=== PATIENT | female | born 1960 | race Caucasian/White ===

== ENCOUNTER → 2018-04-17 | Outpatient (CLI) | payer BC ==
[~2018-04-17] MED LIST: AMOX500 PO; CEPH500 PO; CIPR500 PO; CODACE30 PO; CODGUAEL PO; GUAPHELA PO; HYDACE5 PO; HYDGUAL120 PO; LANS1COM10 PO; MAGCIT300 PO; MECL25 PO; NITR100CA PO; OMEP40CA12 PO; ONDA4 PO; OXYACE5T PO; PHENA200 PO; PROM25 PO; RANI150 PO; RXHYDACE PO; TOBR.3OPSO OP
== END | disposition home or self-care (01) ==
LOC: LAB EV 16:18 → LAB SHORT 16:18
DX: N39.0 Urinary tract infection, site not specified (principal)
CPT/HCPCS: 87077; 87086; 87186

== ENCOUNTER 2019-01-21 11:11 | Observation (INO) | payer BC ==
[~2019-01-21] VITALS: Ht 154.9 cm; Wt 82.6 kg
[2019-01-21 11:44] LABS: BASOPHILS ABSOLUTE AUTO 0.04 K/mm3 (0.00-0.23); BASOPHILS PERCENT AUTO 0 % (0-2); EOSINOPHILS ABSOLUTE AUTO 0.26 K/mm3 (0.00-0.68); EOSINOPHILS PERCENT AUTO 2 % (0-6); Hematocrit 40.2 % (33.0-51.0); IMMATURE GRAN PERCENT AUTO 1 % (0-1); LYMPHOCYTES ABSOLUTE AUTO 3.41 K/mm3 (0.84-5.20); LYMPHOCYTES PERCENT AUTO 23 % (21-46); MONOCYTES ABSOLUTE AUTO 0.56 K/mm3 (0.16-1.47); MONOCYTES PERCENT AUTO 4 % (4-13); Mean Corpuscular HGB 28.6 pg (26.0-34.0); Mean Corpuscular HGB Conc 32.3 g/dL (31.5-36.5); Mean Corpuscular Volume 88 fL (80-100); NEUTROPHILS ABSOLUTE AUTO 10.62 K/mm3 (1.96-9.15); NEUTROPHILS PERCENT AUTO 71 % (41-73); Platelet Count 387 K/mm3 (150-400); RDW Coefficient Variation 12.7 % (11.7-14.2); RDW Standard Deviation 41.4 fL (35.1-46.3); Red Blood Cell Count 4.55 M/mm3 (3.80-5.20); White Blood Cell Count 14.99 K/mm3 (4.00-11.30)
[2019-01-21 11:58] LABS: Alanine Aminotransfer (ALT/SGP 26 U/L (12-78); Albumin, Blood 4.1 g/dL (3.4-5.0); Alk Phos 125 U/L (50-136); Anion Gap 13 mmol/L (6-16); Aspartate Aminotrans (AST/SGOT 12 U/L (12-37); Bilirubin, Total 0.4 mg/dL (0.1-1.0); Blood Urea Nitrogen 15 mg/dL (8-24); Bun/Creatinine Ratio 24.2 (12.0-20.0); CO2, Blood 20 mmol/L (21-32); Calcium, Blood 9.1 mg/dL (8.5-10.1); Chloride, Blood 107 mmol/L (98-108); Creatinine, Blood 0.62 mg/dL (0.40-1.00); Glomerular Filtration Rate >60 (60-); Glucose, Blood 172 mg/dL (70-99); Potassium, Blood 3.6 mmol/L (3.5-5.5); Sodium, Blood 140 mmol/L (136-145); Total Protein, Blood 8.1 g/dL (6.4-8.2)
[2019-01-21 12:36] LABS: Troponin I <0.015 ng/mL (0.000-0.040)
[2019-01-21] MEDS ORDERED: MOTION RELIEF25 MG PO (13:51)
[2019-01-21] MEDS ORDERED: Zofran4 MG PO (13:51)
[2019-01-21 14:02] LABS: Source, Urine Clean Catch
[2019-01-21 14:09] LABS: Bilirubin, Urine Neg (Neg); Blood, Urine Neg (Neg); Glucose Qualitative, Urine Neg (Neg); Ketones, Urine 3+ (Neg); Leukocyte Esterase, Urine Neg (Neg); Nitrite, Urine Pos (Neg); Protein, Urine Neg (Neg); Specific Gravity, Urine 1.015 (1.003-1.022); Urobilinogen, Urine NORM (Normal)
[2019-01-21 14:39] LABS: Appearance, Urine Clear (Clear); Color, Urine Yellow (P-Yellow)
[2019-01-21 17:27] LABS: Red Blood Cells, Urine Not Seen /hpf (0-2); Squamous Epithelial Cells Mod /hpf (Few)
[2019-01-21 17:30] LABS: Bacteria Many /hpf
--- NOTE | 2019-01-22 04:19 | NUR ---
SHIFT SUMMARY- PT. SLEPT T/O THE SHIFT. NO APPARENT DISTRESS NOTED. NO C/O NAUSEA OR VOMIITNG. NO ACUTE CHANGES OVERNIGHT. CALL LIGHT WITHIN REACH AND SIDE RAILS UP X2. WILL CONT TO MONITOR.
[2019-01-22 05:02] LABS: BASOPHILS ABSOLUTE AUTO 0.04 K/mm3 (0.00-0.23); BASOPHILS PERCENT AUTO 0 % (0-2); EOSINOPHILS ABSOLUTE AUTO 0.29 K/mm3 (0.00-0.68); EOSINOPHILS PERCENT AUTO 2 % (0-6); Hematocrit 36.6 % (33.0-51.0); Hemoglobin 11.5 g/dL (11.5-16.0); IMMATURE GRAN ABSOLUTE AUTO 0.05 K/mm3 (0.00-0.10); IMMATURE GRAN PERCENT AUTO 0 % (0-1); LYMPHOCYTES ABSOLUTE AUTO 3.55 K/mm3 (0.84-5.20); LYMPHOCYTES PERCENT AUTO 29 % (21-46); MONOCYTES ABSOLUTE AUTO 0.53 K/mm3 (0.16-1.47); MONOCYTES PERCENT AUTO 4 % (4-13); Mean Corpuscular HGB Conc 31.4 g/dL (31.5-36.5); Mean Corpuscular Volume 89 fL (80-100); Mean Platelet Volume 10.1 fL (9.1-12.4); NEUTROPHILS ABSOLUTE AUTO 7.62 K/mm3 (1.96-9.15); NEUTROPHILS PERCENT AUTO 63 % (41-73); Platelet Count 317 K/mm3 (150-400); RDW Standard Deviation 42.3 fL (35.1-46.3); White Blood Cell Count 12.08 K/mm3 (4.00-11.30)
[2019-01-22 05:26] LABS: Anion Gap 7 mmol/L (6-16); Blood Urea Nitrogen 15 mg/dL (8-24); Bun/Creatinine Ratio 21.1 (12.0-20.0); CO2, Blood 27 mmol/L (21-32); Calcium, Blood 8.7 mg/dL (8.5-10.1); Chloride, Blood 107 mmol/L (98-108); Creatinine, Blood 0.71 mg/dL (0.40-1.00); Glomerular Filtration Rate >60 (60-); Glucose, Blood 112 mg/dL (70-99); Potassium, Blood 3.6 mmol/L (3.5-5.5); Sodium, Blood 141 mmol/L (136-145)
[2019-01-22] MEDS ORDERED: AMLO10 PO (10:13)
[2019-01-22] MEDS ORDERED: HYDCHL12.5 PO (10:13)
[2019-01-22] MEDS ORDERED: CEPH500 PO (10:14)
[2019-01-22] MEDS ORDERED: MOTION RELIEF25 MG PO (10:14)
[2019-01-22] MEDS ORDERED: ONDA4ODT MM (10:14)
--- NOTE | 2019-01-22 11:54 | NUR ---
PATIENT DISCHARGED PATIENT DC HOME WITH RIDE FROM DAUGHTER. IV REMOVED. 1 DOSE OF ROCEPHIN GIVEN. PATIENT WALKED IN [place] WITH WALKER THEN CANE WITH OT AND PT. PT GOT DOSE OF MECLIZINE, PT STATED IT PROBABLY HELPED. PT C/O HEADACHE OVER WHOLE HEAD, TYLENOL PRN GIVEN, PT STATED IT TOOK THE PAIN AWAY. DC PACKET AND EDUCATION GIVEN TO PATIENT AND EXPLAINED. NEW MEDS EXPLAINED TO PT WELL. PT VERBALIZED UNDERSTANDING AND SIGNED DC FORM.
== END 2019-01-22 11:43 | disposition home or self-care (01) ==
LOC: ER 11:11 → MEDS 11:12 → ERHOLD 11:12 → MEDS 18:10
PROVIDERS: Emergency Medicine; ADMIT Internal Medicine
DX: R42 Dizziness and giddiness (principal); R11.2 Nausea with vomiting, unspecified; I10 Essential (primary) hypertension; K21.9 Gastro-esophageal reflux disease without esophagitis; F32.9 Major depressive disorder, single episode, unspecified; Z88.6 Allergy status to analgesic agent; Z88.2 Allergy status to sulfonamides; Z79.899 Other long term (current) drug therapy
CPT/HCPCS: 36415; 70450; 70496; 70498; 80048; 80053; 81001; 83735; 84484; 85025; 87077; 87086; 87186; 93005; 93010; 93306; 96365; 96372; 96372-59; 96374; 96375; 97161; 97165; 97535; 99285-25; A9270; G0378; J0360; J0696; J1650; J2405; J2550; J7030; Q9967

== ENCOUNTER → 2019-05-18 | Outpatient (CLI) | payer BC ==
[~2019-05-18] MED LIST changes: +AMLO10 PO; +HYDCHL12.5 PO; +MOTION RELIEF25 MG PO; +ONDA4ODT MM; +Zofran4 MG PO
== END | disposition home or self-care (01) ==
LOC: LAB SHORT 09:49 → LAB EV 09:49
DX: N39.0 Urinary tract infection, site not specified (principal)
CPT/HCPCS: 87086; 87147

== ENCOUNTER → 2019-06-25 | Outpatient (CLI) | payer BC | LOC: LAB EV 13:04 → LAB SHORT 13:04 | DX: N39.0 Urinary tract infection, site not specified (principal) | CPT/HCPCS: 87077; 87086; 87186 ==

== ENCOUNTER 2020-02-20 17:33 | Emergency (ER) | payer OTHER, BC ==
[~2020-02-20] VITALS: Ht 154.9 cm; Wt 85.3 kg
[2020-02-20] MEDS ORDERED: METOPROLOL SUCC25 MG PO (18:57)
== END 2020-02-20 20:33 | disposition home or self-care (01) ==
LOC: ER 17:33
DX: S16.1XXA Strain of muscle, fascia and tendon at neck level, initial encounter (principal); S46.912A Strain of unspecified muscle, fascia and tendon at shoulder and upper arm level, left arm, initial encounter; F32.9 Major depressive disorder, single episode, unspecified; K21.9 Gastro-esophageal reflux disease without esophagitis; Z88.2 Allergy status to sulfonamides; Z88.6 Allergy status to analgesic agent; Z79.899 Other long term (current) drug therapy; V43.52XA Car driver injured in collision with other type car in traffic accident, initial encounter; Y92.410 Unspecified street and highway as the place of occurrence of the external cause
CPT/HCPCS: 72040; 99284-25

== ENCOUNTER 2021-01-17 17:16 | Emergency (ER) | payer BC ==
[~2021-01-17] VITALS: Ht 154.9 cm; Wt 83.9 kg
[~2021-01-17 17:16] MED LIST changes: +METOPROLOL SUCC25 MG PO
[2021-01-17] MEDS ORDERED: CYCLOBENZAPRINE5 MG PO (19:21)
== END 2021-01-17 19:40 | disposition home or self-care (01) ==
LOC: ER 17:16
DX: S16.1XXA Strain of muscle, fascia and tendon at neck level, initial encounter (principal); K21.9 Gastro-esophageal reflux disease without esophagitis; M54.6 Pain in thoracic spine; I10 Essential (primary) hypertension; Z88.2 Allergy status to sulfonamides; Z88.6 Allergy status to analgesic agent; V49.40XA Driver injured in collision with unspecified motor vehicles in traffic accident, initial encounter
CPT/HCPCS: 96372; 99283-25; A9270; J1885

== ENCOUNTER → 2023-12-27 | Outpatient (CLI) | payer BC ==
[~2023-12-27] MED LIST changes: +CYCLOBENZAPRINE5 MG PO
== END ==
LOC: LAB 13:15 → LAB SHORT 13:15
DX: N39.0 Urinary tract infection, site not specified (principal)
CPT/HCPCS: 87077; 87086; 87186